=== PATIENT | male | born 1990 | race Native Hawaiian/Other Pacific Islander ===

== ENCOUNTER 2022-03-01 09:36 | Emergency (ER) | payer MEDICAID, OTHER ==
[~2022-03-01] VITALS: Ht 182 cm; Wt 73.0 kg
[2022-03-01 10:11] VITALS: BP 115/61
[2022-03-01] MEDS ORDERED: KETOROLAC 60 MG/2 ML VIAL IM STA (10:33)
[2022-03-01] MEDS ORDERED: cefTRIAXone 1,000 MG VIAL IM STA (10:33)
--- NOTE | 2022-03-01 10:42 | ED Upper Extremity ---
General Chief Complaint: Laceration Stated Complaint: LEFT WRIST LACERATION Nursing Triage Note: Patient has ambulated to ER 1 with cc of a puncture wound on his left wrist from a fish fin while he was cleaning fish. Source: patient History of Present Illness Date Seen by Provider: Mar 01, 2022 Time Seen by Provider: 10:14 Initial Comments 31-year-old male presenting with complaints of puncture wound to his left wrist. He states he was trying to clean a fence when he had a Fin from the fish get stuck in his wrist. He states that when and approximately three quarters of an inch. He had to pull the finger help. In the [place] appeared intact. He had bleeding from the wound after that. Bleeding is controlled on arrival to the ED. He states he has a throbbing pain at the site of the puncture as well as throbbing pain into his hand. He feels like his whole hand is numb and tingling. He can still feel light touch but states that again it feels tingling in the entire hand not just certain fingers. He is able to move his fingers but it is painful. He states his last tetanus shot was less than 5 years ago. Onset: just prior to arrival Severity: severe Pain/Injury Location: left wrist Method of Injury: other (Puncture wound with Fin from fish) Modifying Factors: Improves With Immobilization; Worse With Movement Allergies and Home Medications Allergies Coded Allergies: Sulfa (Sulfonamide Antibiotics) (Verified Allergy, Unknown, 03/01/22) Patient Home Medication List Home Medication List Reviewed: Yes Cephalexin (Cephalexin) 500 Mg Capsule, 500 MG PO QID Prescribed by: ERICK PIERCE on 03/01/22 1047 Ibuprofen (Ibuprofen) 800 Mg Tablet, 800 MG PO Q8H PRN for PAIN Prescribed by: ERICK PIERCE on 03/01/22 1047 Review of Systems Constitutional: No chills, No fever EENTM: no symptoms reported Respiratory: no symptoms reported Cardiovascular: no symptoms reported Gastrointestinal: no symptoms reported Genitourinary: no symptoms reported Musculoskeletal: see HPI Skin: see HPI Psychiatric/Neurological: See HPI Past Jceuxbv-Lmrdrh-Mrbnvm Hx Patient Social History Tobacco Use?: No Use of E-Cig and/or Vaping dev: Unable to obtain Substance use?: Yes Substance type: Marijuana Alcohol Use?: Yes Alcohol Frequency: Once in a while Physical Exam Vital Signs Vital Signs - First Documented 03/01/22 10:11 Temp 36.3 Pulse 57 Resp 16 B/P (MAP) 115/61 (79) Pulse Ox 16 O2 Delivery Room Air Capillary Refill : Height, Weight, BMI Height: '" Weight: lbs. oz. kg; 22.00 BMI Method: General Appearance: WD/WN, no apparent distress Cardiovascular: normal peripheral pulses, regular rate, rhythm Wrist: Yes limited ROM (Left wrist due to pain), Yes pain, Yes soft tissue tenderness (Tenderness around the puncture site on the left wrist) Hand: no evidence of injury, normal ROM Neurologic/Tendon: No normal sensation (Patient states he can feel light touch but that his entire hand feels like it is tingling and going numb.); normal motor functions, normal tendon functions Neurologic/Psychiatric: alert, oriented x 3 Skin: warm/dry, other (2 mm puncture wound to the left lateral wrist) Progress/Results/Core Measures Results/Orders My Orders Orders - ERICK PIERCE MD Ceftriaxone (Rocephin) (03/01/22 10:33) Ketorolac Injection (Toradol Injection) (03/01/22 10:33) Lidocaine 1% Inj 20 Ml (Xylocaine 1% Inj (03/01/22 10:45) Wound Dressing-Ed (03/01/22 10:34) Wrist-[place] (03/01/22 10:34) Lidocaine 1% Inj 50 Ml (Xylocaine 1% Inj (03/01/22 10:50) Medications Given in ED Current Medications Medications Dose Ordered Sig/[place] Route Start Time Stop Time Status Last Admin Dose Admin Lidocaine HCl 2.1 ml ONCE ONCE INJ 03/01/22 10:45 03/01/22 10:46 DC 03/01/22 10:58 2.1 ML Vital Signs/I&O 03/01/22 10:11 Temp 36.3 Pulse 57 Resp 16 B/P (MAP) 115/61 (79) Pulse Ox 16 O2 Delivery Room Air Blood Pressure Mean: 79 Progress Progress Note : Progress Note Clean wound and dressed with antibiotic ointment and nonstick dressing. Placed in a cock-up wrist splint. Treat with Toradol for pain and inflammation as well as Rocephin 1 g IM for antibiotic. Follow that up with Keflex by mouth. Counseled to watch for signs of infection and check with a clinic this week when he gets back to [place] in [facility]. Departure Impression Primary Impression: Puncture wound of wrist, left Qualified Codes: S61.532A - Puncture wound without foreign body of left wrist, initial encounter Disposition: 01 HOME, SELF-CARE Condition: Stable Departure-Patient Inst. Decision time for Depature: 10:44 Patient Instructions: Wound Care ED, Acute Pain, Adult (DC) Add. Discharge Instructions: Watch for signs of infection such as increasing redness streaking up your arm, fever over 101 Fahrenheit, pus draining from the wound. Keep the wound clean with soap and water and apply antibiotic ointment and a Ba nd-Aid at least twice a day. Take the ibuprofen 800 mg every 8 hours as needed for pain and inflammation. You could still apply ice to help with pain and swelling. Wear the wrist splint for the next week to limit movement of the wrist and help the area heal. Take the full course of antibiotics to help prevent infection. Follow-up with a primary care clinic this week when you return to [place] All discharge instructions reviewed with patient and/or family. Voiced understanding. Scripts Ibuprofen (Ibuprofen) 800 Mg Tablet 800 MG PO Q8H PRN for PAIN for 10 Days, #30 TAB 0 Refills Prov: ERICK PIERCE MD 03/01/22 Cephalexin (Cephalexin) 500 Mg Capsule 500 MG PO QID for puncture wound for 7 Days, #28 CAP 0 Refills Prov: ERICK PIERCE MD 03/01/22 Images Extremities-Upper 1 - Puncture Wound (2 mm puncture wound to left wrist. bleeding controlled. tender to palpation) ERICK PIERCE MD Mar 01, 2022 10:42
[2022-03-01] MEDS ORDERED: LIDOCAINE 1% INJ 20 ML VIAL INJ ONE (10:45)
[2022-03-01] MEDS ORDERED: IBUP-1780 PO (10:47)
[2022-03-01] MEDS ORDERED: CEPH500C PO (10:47)
[2022-03-01] MEDS ORDERED: LIDOCAINE 1% INJ 50 ML (XYLOCAINE) VIAL ONE (10:50)
== END 2022-03-01 11:00 | disposition home or self-care (01) ==
LOC: ER FS 09:38
DX: S61.532A Puncture wound without foreign body of left wrist, initial encounter (principal); W56.52XA Struck by other fish, initial encounter
CPT/HCPCS: 99282